=== PATIENT | female | born 1960 | race Caucasian/White ===

== ENCOUNTER → 2023-05-05 11:13 | Outpatient (REF) | payer BC, SELFPAY | LOC: WDC 11:13 | PROVIDERS: ATTENDING PHYSICIAN Nurse Practitioner Family | DX: Z12.31 Encounter for screening mammogram for malignant neoplasm of breast (principal) | CPT/HCPCS: 77063; 77067 ==

== ENCOUNTER → 2023-10-08 17:03 | Outpatient (REF) | payer BC, SELFPAY | LOC: RAD 17:03 | PROVIDERS: ATTENDING PHYSICIAN Nurse Practitioner Family | DX: M79.602 Pain in left arm (principal) | CPT/HCPCS: 73030; 73060 ==

== ENCOUNTER → 2024-01-06 10:25 | Outpatient (REF) | payer BC, SELFPAY | LOC: RAD 10:25 | PROVIDERS: ATTENDING PHYSICIAN Nurse Practitioner Family | DX: M54.6 Pain in thoracic spine (principal) | CPT/HCPCS: 72072 ==

== ENCOUNTER → 2024-05-10 11:34 | Outpatient (REF) | payer BC, SELFPAY | LOC: WDC 11:34 | PROVIDERS: ATTENDING PHYSICIAN Obstetrics & Gynecology Gynecology; FAMILY PHYSICIAN Nurse Practitioner Family | DX: Z12.31 Encounter for screening mammogram for malignant neoplasm of breast (principal) | CPT/HCPCS: 77063; 77067 ==

== ENCOUNTER → 2024-06-08 13:13 | Outpatient (REF) | payer BC, SELFPAY | LOC: RAD 13:13 | PROVIDERS: ATTENDING PHYSICIAN Internal Medicine | DX: G89.29 Other chronic pain (principal); I10 Essential (primary) hypertension; R07.89 Other chest pain | CPT/HCPCS: 71260; Q9967 ==

== ENCOUNTER → 2024-09-21 14:04 | Outpatient (REF) | payer BC, SELFPAY | LOC: RAD 14:04 | PROVIDERS: ATTENDING PHYSICIAN Nurse Practitioner Family | DX: E04.1 Nontoxic single thyroid nodule (principal); K76.0 Fatty (change of) liver, not elsewhere classified | CPT/HCPCS: 76536; 76700 ==

== ENCOUNTER → 2025-02-28 08:04 | Outpatient (REF) | payer SELFPAY | LOC: HWRAD 08:04 | PROVIDERS: ATTENDING PHYSICIAN Nurse Practitioner Adult Health | DX: E78.2 Mixed hyperlipidemia (principal) | CPT/HCPCS: 75571 ==

== ENCOUNTER → 2025-03-24 07:24 | Outpatient (REF) | payer BC, SELFPAY | LOC: HWRAD 07:24 | PROVIDERS: ATTENDING PHYSICIAN Nurse Practitioner Adult Health | DX: Z78.0 Asymptomatic menopausal state (principal) | CPT/HCPCS: 77080 ==